=== PATIENT | female | born 1975 | race African-American/Black ===

== ENCOUNTER 2018-05-30 06:25 | Day surgery (SDC) | payer OTHER ==
[~2018-05-30 06:25] MED LIST: ATENOLOL50 MG PO; GABAPENTIN600 MG PO; LOSARTAN POTASS25 MG PO; METFORMIN HCL500 MG PO; PROTONIX40 MG PO; TRAMADOL HCL50 MG PO
== END 2018-05-30 16:25 | disposition home or self-care (01) ==
LOC: CIR.AMB 06:25
DX: N84.0 Polyp of corpus uteri (principal)

== ENCOUNTER → 2019-03-17 06:54 | Outpatient (CLI) | payer OTHER | END | disposition home or self-care (01) | LOC: LAB 06:54 | DX: Z01.810 Encounter for preprocedural cardiovascular examination (principal); Z01.811 Encounter for preprocedural respiratory examination; Z01.812 Encounter for preprocedural laboratory examination ==

== ENCOUNTER 2019-03-20 06:10 | Inpatient (IN) | payer OTHER ==
[~2019-03-20] VITALS: Ht 165.1 cm; Wt 90.7 kg
[2019-03-23] MEDS ORDERED: PERCOCET 5-3251 EACH PO (14:12)
== END 2019-03-23 14:51 | disposition home or self-care (01) | DRG 743 ==
LOC: OB/GYN 06:10 → O/R 06:10 → OB/GYN 11:42 → SURH 12:22 → OB/GYN 03-23 14:51
PROVIDERS: ADMIT Specialist
PROC: 0UT90ZZ Resection of Uterus, Open Approach (ICD-10-PCS; principal; 2019-03-20 07:45)
DX: D25.1 Intramural leiomyoma of uterus (principal); N92.1 Excessive and frequent menstruation with irregular cycle; N85.2 Hypertrophy of uterus; I10 Essential (primary) hypertension; E11.9 Type 2 diabetes mellitus without complications; Z79.4 Long term (current) use of insulin

== ENCOUNTER 2019-04-21 15:58 | Outpatient (CLI) | payer OTHER ==
[~2019-04-21 15:58] MED LIST changes: +PERCOCET 5-3251 EACH PO
== END 2019-04-21 18:00 | disposition home or self-care (01) ==
LOC: LAB 15:58
DX: N39.0 Urinary tract infection, site not specified (principal)

== ENCOUNTER 2019-05-15 17:26 | Emergency (ER) | payer OTHER ==
[~2019-05-15] VITALS: Ht 165.1 cm; Wt 88.0 kg
== END 2019-05-15 22:41 | disposition home or self-care (01) ==
LOC: ER 17:26
DX: R10.31 Right lower quadrant pain (principal); R10.13 Epigastric pain

== ENCOUNTER 2024-12-30 10:09 | Outpatient (CLI) | payer OTHER ==
[~2024-12-30 10:09] MED LIST changes: +NORFLEX100MG PO
== END 2024-12-30 10:10 | disposition home or self-care (01) ==
LOC: NUCLEAR 10:09
PROVIDERS: ATTEND Internal Medicine Gastroenterology
DX: K82.9 Disease of gallbladder, unspecified (principal)